=== PATIENT | female | born 1950 | race Caucasian/White ===

== ENCOUNTER 2024-07-31 09:34 | Outpatient (CLI) | payer MEDICARE, SELFPAY ==
--- OUTSIDE RECORDS SUMMARY | 2024-07-31 10:45 | XMS_ITS | Encounter Summary ---
Author Organization [facility] Address 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 [place] [address] Admit Date: 01/28/2008 JENELLE RAMSEY Sex: F Admit Prov: ANDRE ZELAYA Date: 1950 Primary Care Prov: LUIGI QUINTANILLA CMRN: [id number] Room: DIANDRA N: [id number] IMAGING SERVICES Ordering Prov: ANDRE ZELAYA Nara Accession Number: [id number] Interpretation BILATERAL FULL FIELD DIGITAL SCREENING MAMMOGRAM WITH CAD. Date: 01/28/08 History: Routine Screening. Technique: Full field digital craniocaudal and mediolateral oblique projections of both breasts were obtained. Computer aided diagnosis was performed. Comparison: 11/2006, 10/2005, 10/2004 Breast Parenchymal Composition: Scattered fibroglandular densities. Findings: No suspicious mass, suspicious microcalcifications, or architectural distortion in either breast is identified. Since the prior study, there has been no significant interval change. The computer aided diagnosis detects no significant abnormality. Overall Assessment: BI-RADS category 1: Negative. Recommendation: Annual mammography is recommended. Assessment BIRADS: 1-Negative Recommendation: Normal interval follow-up Dictated by: INOCENCIA OBREGON Electronically signed by: INOCENCIA OBREGON 01/28/2008 15:30 Transcribed: 01/28/2008 14:44 AMK Procedure Note Inocencia Obregon - 01/28/2008 [facility] [address] [place], [place] [address] Admit Date: 01/28/2008 JENELLE RAMSEY Sex: F Admit Prov: ANDRE ZELAYA Date: 1950 Primary Care Prov: LUIGI QUINTANILLA CMRN: [id number] Room: DIANDRA N: [id number] IMAGING SERVICES Ordering Prov: ANDRE ZELAYA Nara Interpretation BILATERAL FULL FIELD DIGITAL SCREENING MAMMOGRAM WITH CAD. Date: 01/28/08 History: Routine Screening. Technique: Full field digital craniocaudal and mediolateral oblique projections of both breasts were obtained. Computer aided diagnosiswas performed. Comparison: 11/2006, 10/2005, 10/2004 Breast Parenchymal Composition: Scattered fibroglandular densities. Findings: No suspicious mass, suspicious microcalcifications, or architectural distortion in either breast is identified. Since theprior study, there has been no significant interval change. The computeraided diagnosis detects no significant abnormality. Overall Assessment: BI-RADS category 1: Negative. Recommendation: Annual mammography is recommended. Assessment BIRADS: 1-Negative Recommendation: Normal interval follow-up Dictated by: INOCENCIA OBREGON Electronically signed by: INOCENCIA OBREGON 01/28/2008 15:30 Transcribed: 01/28/2008 14:44 AMK Andre Zelaya MD MAMMO ORDERABLES Final Result documented in this encounter Visit Diagnoses Diagnosis Other screening mammogram documented in this encounter Care Teams Stain Wiper Relationship Specialty Start Date End Date Jose Samaniego MD [address] [facility] [address] [place] [address] PCP - General Internal Medicine 04/18/12 documented as of this encounter
--- OUTSIDE RECORDS SUMMARY | 2024-07-31 10:45 | XMS_ITS | Encounter Summary ---
Author Organization [employer] Address [address] [place] [address] Care Team Providers Care Legal Entity Controller Name Role Phone Jose Samaniego MD Primary Care Provider Encounter Details Date Type Department Care Team (Late st Contact Info) Description 03/31/2006 Outpatient Historical [facility] Anmol Herman MD [address] [place] [address] [place] [phone] Special Screening for Malignant Neoplasms, Colon (Primary Dx) Social History Tobacco Use Types Packs/Day Years Used Date Smoking Tobacco: Never Assessed Comments Unknown Sex and Gender Information Value Date Recorded Sex Assigned at Not on file 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
--- OUTSIDE RECORDS SUMMARY | 2024-07-31 10:45 | XMS_ITS | Encounter Summary ---
Author Organization [facility] Address 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
--- OUTSIDE RECORDS SUMMARY | 2024-07-31 10:45 | XMS_ITS | Encounter Summary ---
Author Organization [facility] Address 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
--- OUTSIDE RECORDS SUMMARY | 2024-07-31 10:45 | XMS_ITS | Encounter Summary ---
Author Organization [facility] Address 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
--- OUTSIDE RECORDS SUMMARY | 2024-07-31 10:45 | XMS_ITS | Encounter Summary ---
Author Organization [facility] Address 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
--- OUTSIDE RECORDS SUMMARY | 2024-07-31 10:45 | XMS_ITS | Encounter Summary ---
Author Organization [facility] Address [address] [place] [address] Care Team Providers Care Fiberglass Roving Winder Name Role Phone Jose Samaniego MD Primary Care Provider [phone] Encounter Details Date Type Department Care Team (Latest Contact Info) Description 10/20/[address] 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
--- OUTSIDE RECORDS SUMMARY | 2024-07-31 10:45 | XMS_ITS | Encounter Summary ---
Author Organization [facility] Address 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
--- OUTSIDE RECORDS SUMMARY | 2024-07-31 10:45 | XMS_ITS | Encounter Summary ---
Author Organization [facility] Address 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
--- OUTSIDE RECORDS SUMMARY | 2024-07-31 10:45 | XMS_ITS | Clinical Summary ---
Author Organization [facility] Address [facility] [place] [address] Care Team Providers Care Central Supply Tech Name Role Phone Unavailable Primary Care Provider Unavailabl e Social History Tobacco Use Types Packs/Day Years Used Date Smoking Tobacco: Never Assessed Comments Unknown Sex and Gender Information Value Date Recorded Sex Assigned at Not on file Legal Sex Female 8:10 PM CDT Gender Identity Not on file Sexual Orientation Not on file Plan of Treatment Health Maintenance Due Date Last Done Comments Colorectal Cancer Screening Colonoscopy (10 Years) 1950 Hepatitis C 10/20/1967 DTaP, Tdap and Td Vaccines ( 1 - Tdap) 1968 Mammogram Screening 1989 Pneumococcal Vaccine: 50+ Ye ars (1 of 1 - PCV) 10/20/1999 Zoster Vaccines (1 of 2) 10/20/1999 Dexa Scan (General) 2014 COVID-19 Vaccine ( - 2023-2 5 season) 2023 RSV Immunization or 60+ Years (1 - 1-dose 75+ series) 2024 Meningococcal B Vaccine Aged Out No l onger eligible based on patient's age to complete this topic Meningococcal Vaccine Aged Out No lottie kwaku eligible based on patient's age to complete this topic RSV Immunizations Under 20 Months Aged Out No longer eligible based on patient's age to complete this topic
--- OUTSIDE RECORDS SUMMARY | 2024-07-31 10:45 | XMS_ITS | Encounter Summary ---
Author Organization [facility] Address 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
--- OUTSIDE RECORDS SUMMARY | 2024-07-31 10:45 | XMS_ITS | Encounter Summary ---
Author Organization [facility] Address [address] [place] [address] Care Team Providers Care Welder Helper Name Role Phone Jose Samaniego MD Primary Care Provider [phone] Encounter Details Date Type Department Care Team (Latest Contact Info) Description 03/23/1999 Outpatient Historical HIS [facility] Knapp, Andre Bains MD NO ADDRESS ON FILE Nonspecific abnormal findings on radiological or other examinations of the breast (Primary Dx) Social History Tobacco Use Types Packs/Day Years Used Date Smoking Tobacco: Never Assessed Comments Unknown Sex and Gender Information Value Date Recorded Sex Assigned at Not on file 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 [address] [place] [phone] PCP - General Internal Medicine 04/18/12 documented as of this encounter
--- OUTSIDE RECORDS SUMMARY | 2024-07-31 10:45 | XMS_ITS | Continuity of Care Document ---
Author Organization [facility] Address [address] [facility] [address] [place] [address] Phone Care Team Providers Care Hair Specialist Name Role Phone Angelo Rubin MD Unavailable Unavailable Allergies, Adverse Reactions, Alerts Substance Reaction Status Criticality monosodium glutamate numbness of face Active No Information Sulfa (Sulfonamide Antibiotics) Active No Information Medications Medication Instructions Dosage Effective Dates (start - stop) Status Comments polymyxin B sulfate 10,000 unit-trimethoprim 1 mg/mL eye drops instill 1 drop 3 times daily into the affected eye(s) for 7 days, separate at least 5 minutes from any other eye drop - Active please fill one bottle, 5 or 10mL pack size is sufficient Multivitamin 50 Plus tablet - Active calcium ORAL TABLET - Active CoQ-10 100 mg capsule - Active Vitamin C (unknown strength) Not Available - Active ZINC (unknown strength) Not Available - Active VITAMIN D3 (unknown strength) Not Available - Active B COMPLEX (unknown strength) Not Available - Active BIOTIN (unknown strength) Not Available - Active Move Free Joint Health 750 mg-100 mg-1.65 mg-108 mg tablet - Active atorvastatin 10 mg tablet take 1 tablet by oral route every day 10 MG - Active PreserVision AREDS-2 250 mg-200 unit-40 mg-1 mg capsule take 1 tablet by oral route 2 times every day 1 tablet - Active Procedures Procedure Date REFRACTION [facility] Oct EYE EXAM & TREATMENT GONIOSCOPY FUNDUS PHOTOGRAPHY OFFICE/OUTPATIENT VISIT, EST [facility] Oct GONIOSCOPY EYE EXAM & TREATMENT GONIOSCOPY [facility] REFRACTION EYE EXAM & TREATMENT [facility] EYE EXAM & TREATMENT Advance Directives Directive Yes / No Effective Date File Name No Information Encounters Encounter Description Practice Location Reason(s) For Visit Diagnoses Date Provider Providers Copied on Encounter [facility], [address] [place] [address], [id number], tel:[phone] [facility] No Information 5 Caryn Stephens. [address] [place] [address], [id number], [place]. tel:[phone] [facility], [address] [place] [address], [id number], tel:[phone] [facility] blurry vision (chief complaint) Age-related nuclear cataract, bilateralDruse n (degenerative) of macula, bilateralAnato mical narrow angle, bilateralPresb yopia Oct-2 4 Caryn Stephens. [address] [place] [address], [id number], [place]. tel:[phone] OFFICE/OUTPA TIENT VISIT, EST [facility], [address] [place] [address], [id number], [place] tel:[phone] [facility] Anatomically Narrow Angle (chief complaint) Age-related nuclear cataract, bilateralDruse n (degenerative) of macula, bilateralAnato mical narrow angle, bilateral Oct-3 3 Caryn Stephens. [address] [place] [address], [id number], [place]. tel:[phone] Referring Provider: Angelo Rubin, [address] [place] [address], [id number]. tel:[phone] [facility], [address] [place] [address], [id number], tel:[phone] [facility] Blurry Vision (chief complaint) Age-related nuclear cataract, bilateralDruse n (degenerative) of macula, bilateralAnato mical narrow angle, bilateral Oct-1 2 Caryn Stephens. [address] [place] [address], [id number], [place]. tel: [phone] Referring Provider: Angelo Darento, [address] [place] [address], [id number]. tel:[phone] [facility], [address] [place] [address], [id number], tel:[phone] [facility] blurry vision (chief complaint) Age-related nuclear cataract, bilateralDruse n (degenerative) of macula, bilateralAnato mical narrow angle, bilateralPresb yopia Sep- 1 Caryn Stephens. [address] [place] [address], [facility], [place]. tel: [phone] [facility], [address] [place] [address], [id number], [place] tel:[phone] [facility] blurry vision (chief complaint) Drusen (degenerative) of macula, bilateralAge-r elated nuclear cataract, bilateral Nov- 0 Caryn Stephens. [address] [place] [address], [id number], [place]. tel:[phone] [facility], [address] [place] [address], [id number], [place] tel:[phone] [facility] Age-related nuclear cataract, bilateralDruse n (degenerative) of macula, bilateral August-0 0 Caryn Angelo. [address] [place] [address], [id number], [place]. tel:[phone] [facility], [address] [place] [address], [id number], [place] tel:[phone] [facility] Age-related nuclear cataract, bilateralDruse n (degenerative) of macula, bilateral Nov- 9 Caryn [facility]. [address] [place] [address], [id number], [place]. tel:[phone] [facility], [address] [address], [place], [place], [id number], [place] tel:[phone] [facility] Age-related nuclear cataract, bilateralPresb yopiaDrusen (degenerative) of macula, bilateral 8 Caryn Stephens. [address] [place] [address], [id number], [place]. tel: [phone] Family History Family Member Type Diagnosis Age At Onset Problem (finding) Fhx of Cardiac disorder Problem (finding) Fhx of diabetes mellitu s Payers Payer name Insurance type Covered libertarian ID Denita villarreal(s) V[employer]UST[employer] CI [id number] Social History Type Description Quantity Date Captured Comments Alcohol Use Details Unknown Caffeine Use Details Unknown Tobacco Use Status No Information Smoking Status No Information Sex Female Chief Complaint And Reason For Visit No Information Reason For Referral Reason For Referral No Information Plan Of Treatment Date Type Action Status Future Order: Radiology Order Op tovue OCT/RTVue GAL ([id number]), Sent on: Sent History Of Present Illness Encounter Date Complaint History Of Prese nt Illness blurry vision The 73 year old female presents for evaluation of blurry vision in the right eye and left eye. Blurred many years. Blur is at distance & close. Only change pt notices is distance better when looks through mid section of specs. Pt also, having trouble w/ tiny print. Pt still taking Preserversion AREDS orally 1x daily for drusen. Anatomically Narrow Angle The 72 year old female presents for evaluation of Anatomically Narrow Angle in the right eye and left eye. Pt reports no issues with her vision Blurry Vision The 71 year old female presents for evaluation of Blurry Vision in the right eye and left eye, for many years. Patient reports blurry vision distance, and near- relief from glasses. Patient taking AREDS QD PO. Patient denies distortion and wavy lines. Patient denies headaches, pain, watering. blurry vision The 70 year old female presents for evaluation of blurry vision in the right eye and left eye. Several years. Gradual onset. Constant. Pt interested in refraction today, states current glasses are several years old and pretty scratched. blurry vision The 69 year old female presents for evaluation of blurry vision in the right eye and left eye. It started about 4 month(s) ago. It affects distance vision. The condition is mild. Has noticed that she has to tilt her head back to look through the bottom of her glasses to be able to see clearly at distance. Has not noticed any problems at near. Functional Status Date Functional Assessmen t No Information Instructions Date Instruction Additional Infor ninfaion Jan- Impression/Plan Related to Anato mical narrow angle, bilateral Impression/Plan Related to Druse n (degenerative) of macula, bilateral Impression/Plan Related to Age-r elated nuclear cataract, bilateral Impression/Plan Related to Presb yopia Impression/Plan Related to Anato mical narrow angle, bilateral Impression/Plan Related to Druse n (degenerative) of macula, bilateral Impression/Plan Related to Age-r elated nuclear cataract, bilateral Impression/Plan Related to Age-r elated nuclear cataract, bilateral Impression/Plan Related to Druse n (degenerative) of macula, bilateral Impression/Plan Related to Anato mical narrow angle, bilateral Impression/Plan Related to Presb yopia Impression/Plan Related to Druse n (degenerative) of macula, bilateral Impression/Plan Related to Age-r elated nuclear cataract, bilateral Impression/Plan Related to Anato mical narrow angle, bilateral Impression/Plan Related to Age-r elated nuclear cataract, bilateral Impression/Plan Related to Druse n (degenerative) of macula, bilateral Impression/Plan Related to Druse n (degenerative) of macula, bilateral Impression/Plan Related to Age-r elated nuclear cataract, bilateral Assessments Type Assessment Date No Information Patient Care Teams Name Effective Dates (start - stop) Status Members No Information
--- OUTSIDE RECORDS SUMMARY | 2024-07-31 10:45 | XMS_ITS | Data Portability ---
Author Organization [place] [facility], [facility] D Mike [facility] Address [address] [place] [address] Assessment No assessment recorded. Plan of Treatment Reminders Order Date Submit Date Provider Last Modified By Organization Details Last Modified Time Details Appointments None record ed. Lab None record ed. Referral None record ed. Procedures None record ed. Surgeries None record ed. Imaging None record ed. Medication Orders None record ed. Patient TargetsNo targets recorded. Patient Instructions Encounter Date Encounter Id Patient Instructions Last Modified By Organization Details Last Modified Time 05/13/2015 [id number] plantar fasciiti s: care instructions [email or web address] Not available 05/13/2015 15:32:44 plantar fasciiti s: exercises [email or web address] Not available 05/13/2015 15:32:44 Overall the taniya ent is very pleased with her improvement thus far. Today I have recommended that the patient continue with a combination of stretching exercises, arch supports, PSC multiligamentous foot strapping, new more supportive Dansko shoes, night splint, functional orthoses, and heel lifts. Patient was advised as to the possible benefits of proper shoes. Patient instructed on heel cord stretches. Patient instructed on plantar fascial stretching. If her pain returns she may consider 2nd injection, amniotic membrane injection, FAST microfasciotomy and, new custom foot orthoses. The etiology and treatment options for degenerative arthritis and hallux rigidus of the 1st mtpj were discussed with the patient today. Treatments include NSAIDs, pain relievers, corticosteroid injections, topical NSAIDs, footwear modifications, custom orthoses, Wrymark carbon fiber insoles, OTC arch supports/padding, and surgery if conservative treatment fails. Today, I have recommended no treatment since the joint is currently asymptomatic. If the patient's pain becomes more chronic and constant, and intensity of discomfort becomes intolerable, then the patient should consider surgery which would consist of an aggressive cheilectomy with soft tissue release of the 1st mtpj. I have spent a total of 30 minutes with the patient in which over 1/2 (16 minutes) were spent discussing/ coordinating care and answering questions regarding the patient's foot concerns/pain [email or web address] Not available 05/13/2015 15:32:44 07/28/2015 [id number] plantar fasciiti s: care instructions [email or web address] Not available 07/28/2015 15:45:04 plantar fasciiti s: exercises [email or web address] Not available 07/28/2015 15:45:04 Overall the taniya ent is very pleased with her improvement thus far. Today I have recommended that the patient continue with a combination of stretching exercises, arch supports, PSC multiligamentous foot strapping, new more supportive Dansko shoes, night splint, functional orthoses, and heel lifts. Patient was advised as to the possible benefits of proper shoes. Patient instructed on heel cord stretches. Patient instructed on plantar fascial stretching. I have recommended a 2nd set of injections today for both heels. If her pain returns she may consider [facility] physical therapy, amniotic membrane injection, FAST microfasciotomy and, new custom foot orthoses. The etiology and treatment options for degenerative arthritis and hallux rigidus of the 1st mtpj were discussed with the patient today. Treatments include NSAIDs, pain relievers, corticosteroid injections, topical NSAIDs, footwear modifications, custom orthoses, Wrymark carbon fiber insoles, OTC arch supports/padding, and surgery if conservative treatment fails. Today, I have recommended no treatment since the joint is currently asymptomatic. If the patient's pain becomes more chronic and constant, and intensity of discomfort becomes intolerable, then the patient should consider surgery which would consist of an aggressive cheilectomy with soft tissue release of the 1st mtpj. I have spent a total of 30 minutes with the patient in which over 1/2 (16 minutes) were spent discussing/ coordinating care and answering questions regarding the patient's foot concerns/pain [email or web address] Not available 07/28/2015 15:45:04 08/28/2015 [id number] plantar fasciiti s: care instructions Not available 09/02/2015 16:51:11 plantar fasciiti s: exercises Not available 09/02/2015 16:51:12 The patient's pa in has increased since her last office visit. Today I have recommended that the patient continue with a combination of stretching exercises, arch supports, PSC multiligamentous foot strapping, new more supportive Dansko shoes, night splint, functional orthoses, and heel lifts. Patient was advised as to the possible benefits of proper shoes. Patient instructed on heel cord stretches. Patient instructed on plantar fascial stretching. I have recommended a course of physical therapy to include [facility] physical therapy. She has declined the amniotic membrane injection, but is interested in pursuing FAST/[place] microfasciotomy. The procedures were discussed in detail today including risks, benefits, complications and expected post-operative course. The etiology and treatment options for degenerative arthritis and hallux rigidus of the 1st mtpj were discussed with the patient today. Treatments include NSAIDs, pain relievers, corticosteroid injections, topical NSAIDs, footwear modifications, custom orthoses, Wrymark carbon fiber insoles, OTC arch supports/padding, and surgery if conservative treatment fails. Today, I have recommended no treatment since the joint is currently asymptomatic. If the patient's pain becomes more chronic and constant, and intensity of discomfort becomes intolerable, then the patient should consider surgery which would consist of an aggressive cheilectomy with soft tissue release of the 1st mtpj. I have spent a total of 30 minutes with the patient in which over 1/2 (16 minutes) were spent discussing/ coordinating care and answering questions regarding the patient's foot concerns/pain [email or web address] Not available 08/31/2015 12:46:12 09/16/2015 [id number] plantar fasciiti s: care instructions [email or web address] Not available 09/17/2015 15:19:24 plantar fasciiti s: exercises [email or web address] Not available 09/17/2015 15:19:24 foot sprain: car e instructions [email or web address] Not available 09/17/2015 15:19:24 10/08/2015 [id number] plantar fasciiti s: care instructions [email or web address] Not available 10/08/2015 15:26:03 plantar fasciiti s: exercises [email or web address] Not available 10/08/2015 15:26:03 The patient's pa in has decreased signfiicantly since her last office visit. She may have sustained a partial plantar fascia tear left. Today I have recommended that the patient continue with a combination of stretching exercises, arch supports, PSC multiligamentous foot strapping, new more supportive Dansko shoes, night splint, functional orthoses, and heel lifts. She may discontinue immobilization since her acute pain has resolved. Patient was advised as to the possible benefits of proper shoes. Patient instructed on heel cord stretches. Patient instructed on plantar fascial stretching. I have recommended she continue a course of physical therapy for 3 additional weeks once she returns from her upcoming vacation trip. She has declined the amniotic membrane injection, but may be interested in pursuing FAST/[place] microfasciotomy if her plantar fascia pain returns. The procedures were discussed in detail today including risks, benefits, complications and expected post-operative course. The etiology and treatment options for degenerative arthritis and hallux rigidus of the 1st mtpj were discussed with the patient today. Treatments include NSAIDs, pain relievers, corticosteroid injections, topical NSAIDs, footwear modifications, custom orthoses, Wrymark carbon fiber insoles, OT arch supports/padding, and surgery if conservative treatment fails. Today, I have recommended no treatment since the joint is currently asymptomatic. If the patient's pain becomes more chronic and constant, and intensity of discomfort becomes intolerable, then the patient should consider surgery which would consist of an aggressive cheilectomy with soft tissue release of the 1st mtpj. I have spent a total of 30 minutes with the patient in which over 1/2 (16 minutes) were spent discussing/ coordinating care and answering questions regarding the patient's foot concerns/pain [email or web address] Not available 10/08/2015 15:26:03 Reason for Referral None Reported. Results Created Date Observation Date Name Description Value Unit Range Abnormal Flag Note LastModifiedBy Organization Detail LastModifiedTime Result Notes None recorded. Problems Name Problem SNOMED Code Status Onset Date Resolution Date Notes Provider Name and Address Organization Details Recorded Time Plantar fasciitis 448025633 Adonis Ferreira DPM [address] [place] [address], [address], [facility] 15:26:03 Calcaneal spur 59727373 Active Edy Ferreira DPM [address] [place], [address], [facility] 6 15:26:03 Localized, primary osteoarthri tis of the ankle and/or foot 028563006 [facility] 14:51:22 Acquired hallux rigidus 4034080 Active Edy Ferreira DPM [address] [place], [address], [facility] 6 15:26:03 Equinus contracture of the ankle 486460564 Active Edy Ferreira DPM [address] [place], [address], [facility] 6 15:26:03 Foot pain 16474430 Active Edy Ferreira DPM [address] [place], [address] 6 15:26:03 Sprain of foot 48612783 Active Edy Ferreira DPM [address] [place], [address] [place] [address] 6 15:26:03 Problem Notes None recorded. Procedures Surgical History Date Name Laterality Status Provider Name and Address Organization Details Recorded Time Favian L4361 Pneumatic Walking Boot Dispensing completed [facility] 09/16/2015 14:39:28 Favian 67124 Xray 2v Heel completed [facility] 09/17/2015 12:34:56 Favian 99532 Preop completed Edy Ferreira DPM [address] [place], [address] 08/31/2015 12:43:45 016 60072 Tendon Injection completed Edy Ferreira, [place] [address] [place], [address], [facility] 07/28/2015 15:44:09 016 77392 Heel Injection completed Edy Ferreira, [place] [address] [place], [address], [facility] 04/22/2015 15:47:21 016 L4397- Posterior Night Splint completed Edy Ferreira, [place] [address] [place], [address] 04/22/2015 15:47:21 016 L1906- Multiligamentous ankle brace completed Edy Ferreira, [place] [address] [place], [address] 04/22/2015 15:47:21 998 Foot Surgery completed Val Calix [facility] 07/28/2015 15:26:33 Imaging Results None recorded. Procedure Notes None recorded. Medical Equipment None Reported. Allergies No known drug allergies Medications Name Sig Start Date Stop Date Status Note LastModified by Organization Details LastModified Time celecoxib 200 mg capsule TAKE 1 CAPSULE 2 TIMES A DAY active Not Available Not Available Not Available cyclobenzapr ine 10 mg tablet TAKE 1 TABLET BY MOUTH 3 TIMES A DAY NEEDED active Not Available Not Available No t Available atorvastatin 20 mg tablet TAKE 1/2 OF A TABLET BY MOUTH EVERY DAY active Not Available Not Available No t Available atorvastatin 10 mg tablet active Not Available Not Available Not Available tramadol 50 mg tablet TAKE 1 TABLET BY MOUTH EVERY 6-8 HOURS NEEDED active Not Available Not Available No t Available fluticasone propionate 50 mcg/actuatio n nasal spray,suspen debbie active Not Available Not Available Not Available Fluzone High-Dose (PF) 180 mcg/0.5 mL intramuscula r syringe TO BE ADMINISTERE D BY PHARMACIST FOR IMMUNIZATIO N active Not Available Not Available No t Available Vitals Date Recorded Body height Body mass index (BMI) Body weight Provider Name and Address Organization Details Last Updated DateTime 09/16/2015 175.26 cm 29.5 kg/m2 71163.474 g Shayla Peguero [facility] 09/16/2015 11:56:08 Social History Question Answer Notes LastModified by [employer] Details LastModified Time Tobacco Smoking Status Never Smoker Helena Rubi manuel, [facility] 04/22/2015 14:50:57 What Is Your Level Of Alcohol Consumption? Occasional Information not available 04/22/2015 Size Of Shoes Information not available 04/22/2015 Sex: Unknown Functional Status Question Answer Note LastModified by [employer] Details LastModified Time What is your exercise level? Occasional Information not available 04/22/2015 Mental Status None recorded. Family History Relationship Description Onset Age of this Age Resolved Age Notes LastModified by Organization Details LastModified Time Mother Heart disease [email or web address] Not available 2015 14:51:23 Father Heart disease [email or web address] Not available 2015 14:51:23 Sister Malignant neoplastic disease [email or web address] Not available 2015 14:51:23 Sister Diabetes mellitus [email or web address] Not available 2015 14:51:23 Brother Malignant neoplastic disease [email or web address] Not available 2015 14:51:23 Medical History Condition Response Tuberculosis or TB N Heart Problems N Ulcers on Legs or Feet N Coronary Artery Disease N HIV or AIDS N Seizure Disorder N Gout N High Blood Pressure N Clot in Lung or Pulmonary Embolism N Menopause N Lung Condition N Phlebitis or Venous Blood Clot N Migraines N Depression N Pacemaker N Anemia N Back Pain Y Neurologic Disease N Sciatica N Heart Attack (PR) N Diabetes N Urinary Tract Infections N Anxiety Disorder N Bleeding Disorder N Arthritis Y Abuse of Alcohol or Drugs N Back injury Y Ear Problems N Cancer N Dementia N Eye Problems N Stroke N Stomach Problems N Peripheral Vascular Disease N Sinus Conditions N Broken Bone Y Thyroid Disorder N High Cholesterol Y Hepatitis N Liver Disease N Heart Disease N Rheumatoid Arthritis N Rash N Osteoporosis N Kidney Disease N Gynecological HistoryNo gynecological history recorded. Obstetrics History GPAL:G 0 P 0 0 0 0 Past Encounters Encounter ID Performer Location Encounter Start Date Encounter Closed Date Diagnosis/Indication Diagnosis SNOMED-CT Code Diagnosis ICD10 Code Diagnosis Note [id number] Chicho Ferreira DPM [facility] [address] [place] [address] 04/22/2015 14:37:20 04/22/2015 15:50:51 Plantar fasciitis 939660186 M72.2 Calcaneal spur 39322451 M77.32 M77.31 Localized, primary osteoarthritis of the ankle and/or foot 921694679 M19.072 Acquired h allux rigidus 2828402 M20.22 Equinus co ntracture of the ankle 199808103 M24.572 M24.571 Foot pain 95093767 M79.6 71 M79.672 [id number] Val Calix [facility] [address] [place] [address] 05/13/2015 14:46:05 05/13/2015 15:56:24 Plantar fasciitis 737051191 M72.2 Calcaneal spur 26112701 M77.32 M77.31 Localized, primary osteoarthritis of the ankle and/or foot 097694735 M19.072 Acquired h allux rigidus 2477609 M20.22 Equinus co ntracture of the ankle 220479358 M24.572 M24.571 Foot pain 16310595 M79.6 71 M79.672 [id number] Chicho Ferreira DPM [facility] [address] [place] [address] 07/28/2015 15:20:11 07/28/2015 15:41:57 Plantar fasciitis 907025676 M72.2 Calcaneal spur 49902063 M77.32 M77.31 Localized, primary osteoarthritis of the ankle and/or foot 877301971 M19.072 Acquired h allux rigidus 9917088 M20.22 Equinus co ntracture of the ankle 459112237 M24.572 M24.571 Foot pain 04616891 M79.6 71 M79.672 [id number] Chicho Ferreira [facility] [address] [place] [address] 08/28/2015 14:24:55 08/28/2015 15:12:05 Plantar fasciitis 721989773 M72.2 Calcaneal spur 17800691 M77.32 M77.31 Localized, primary osteoarthritis of the ankle and/or foot 496217514 M19.072 Acquired h allux rigidus 5586894 M20.22 Equinus co ntracture of the ankle 482584939 M24.572 M24.571 Foot pain 67452770 M79.6 71 M79.672 [id number] Henna [place] [address] [place] [address] 09/16/2015 11:47:58 09/16/2015 12:41:23 Foot pain 90033921 M79.672 Sprain of foot 93140765 S93.692A Plantar fascial sprain/str ain, possible partial tear, Left -Pt evaluated and treated -Radiograp hs of the left heel were obtained, interprete d, and discussed with patient to r/o fracture. No osseous findings were present. -Symptoms are consistent severe strain/spr ain of plantar fascial insertion. Discussed that tendons and ligaments take 3-4 wks to heal. Patient unable to bear weight on left foot. Dispensed CAM walker for LLE with instructio n for 3 pt touch/PWB with assistance of crutches for 1-2 weeks, then can gradually transition into FWB without crutches in CAM walker for 2 additional weeks. Discussed putting custom orthotics or using PSC strap inside CAM for added support to arch -Instructe d to ice heel 20 min on/20 min off -Can continue ultrasound at PT, instructed to back off of stretching for 1-2 weeks as this will caused increased strain at plantar fascial insertion -RTC at already scheduled appt with Dr Mitchell on 10/08/15 for f/u; sooner if needed Plantar fasciitis 673300 003 M72.2 [id number] Chicho Ferreira DPM [facility] [address] [place] [address] 10/08/2015 14:27:00 10/08/2015 15:00:22 Sprain of foot 38827567 S93.692D Plantar fasciitis 498347 003 M72.2 Calcaneal spur 88365656 M77.32 M77.31 Acquired h allux rigidus 7565284 M20.22 Equinus co ntracture of the ankle 269747458 M24.572 M24.571 Foot pain 67357276 M79.6 71 M79.672 Health Concerns Section Related Observation LastModified by Organization Detai ls LastModified Time None Recorded Concern Status LastModified by Organization Details LastModified Time None Recorded Advance Directives Directive None Recorded Payers Encounter Date Sequence Insurance Name Policy Number Policy Wahl Covered Member ID Wahl Member ID Guarantor Name 05/13/2015 1 [facility] - MEDIC[employer] SOL[employer]IONS - MEDICARE COMPLETE CHOICE (MEDICARE REPLACEMENT PPO) [id number] Alden Stutts [id number] Alden Stutts 07/28/2015 1 [facility] [employer] - MEDICARE SOLUTIONS - MEDICARE COMPLETE CHOICE (MEDICARE REPLACEMENT PPO) [id number] Alden Stutts [id number] Alden Stutts 08/28/2015 1 [facility] - MEDICARE SOLUTIONS - MEDICARE COMPLETE CHOICE (MEDICARE REPLACEMENT PPO) [id number] Alden Stutts [id number] Alden Stutts 09/16/2015 1 [facility] - [facility] - MEDICARE SOLUTIONS - MEDICARE COMPLETE CHOICE (MEDICARE REPLACEMENT PPO) [id number] Alden Stutts [id number] Alden Stutts 10/08/2015 1 [facility] - [facility] - MEDICARE SOLUTIONS - MEDICARE COMPLETE CHOICE (MEDICARE REPLACEMENT PPO) [id number] Alden Stutts [id number] Alden Stkiyats Notes Date Note Type Note Provider Name and Address Organization Details Recorded Time 05/13/2015 text/html Heel Pain--Repor sal bypatient.Location: right bottom of the heel; left bottom of the heel Nature of Pain:dull; pain level 0-1/10 Duration:3 months Onset:gradually in the mornings when getting out of bed Course:Better; improved 95% Aggravating Factors:after doing activity, walking then getting up after a period of rest ; pain is worst when getting up out of bed in the morning; standing up after a period of rest Allevating Factors:stretching exercises; ice; rest; OTC Arch supports; custom molded orthotics; night splint Prior Imaging:x ray Previous TreatmentBy Dr. Anna; cortisone shots (at last office visit provided excellent relief); Orthotripsy in 2000Notes:SHE PRESENTS TODAY WEARING NEW DANSKO CLOGS. SHE WAS REFERRED BY DR. MEZA FOR ADDITIONAL EVALUATION AND TREATMENT. SHE HAD A SIMILAR PROBLEM IN [address]RE[address] DR[address] ANNA WITH CUSTOM ORTHOSES AND EVENTUALLY ECSWT. SHE DID NOT BRING HER OLD ORTHOTICS WITH HER TODAY. SHE HAS A HISTORY OF A LEFT 1ST MTPJ SURGERY WITH POSSIBLE CHEILECTOMY- THE JOINT IS CURRENTLY ASYMPTOMATIC. SHE ALSO RELATES A RECENT HISTORY OF INCREASED LOWER BACK PAIN AND HAS BEEN TAKING CELEBREX AND TRAMADOL BUT WOULD LIKE TO AVOID TAKING TRAMADOL IF POSSIBLE. SHE DOES NOT HAVE ANY RADIATING PAIN IN EITHER LEG. OVERALL SHE IS VERY PLEASED WITH HER IMPROVEMENT SINCE HER LAST OFFICE VISIT. SHE BROUGHT HER OLD ORTHOSES FROM 2002 TO THE OFFICE FOR INSPECTION. Edy Ferreira, [address], [address], [place] [facility] 05/13/2015 15:32:51 07/28/2015 text/html Heel Pain--Repor sal bypatient.Location: right bottom of the heel; left bottom of the heel; left worse than right Nature of Pain:dull; pain level 0-1/10 Duration:5 months Onset:gradually in the mornings when getting out of bed Course:Worse Aggravating Factors:after doing activity, walking then getting up after a period of rest ; pain is worst when getting up out of bed in the morning; standing up after a period of rest Allevating Factors:stretching exercises; ice; rest; OTC Arch supports; custom molded orthotics; night splint Prior Imaging:x ray Previous TreatmentBy Dr. Anna; cortisone shots (at initial office visit provided excellent relief); Orthotripsy in 2000Notes:SHE PRESENTS TODAY WEARING NEW DANSKO CLOGS. SHE WAS REFERRED BY DR. MEZA FOR ADDITIONAL EVALUATION AND TREATMENT. SHE HAD A SIMILAR PROBLEM IN [address] DR[address] ANNA WITH CUSTOM ORTHOSES AND EVENTUALLY ECSWT. SHE DID NOT BRING HER OLD ORTHOTICS WITH HER TODAY. SHE HAS A HISTORY OF A LEFT 1ST MTPJ SURGERY WITH POSSIBLE CHEILECTOMY- THE JOINT IS CURRENTLY ASYMPTOMATIC. SHE ALSO RELATES A RECENT HISTORY OF INCREASED LOWER BACK PAIN AND HAS BEEN TAKING CELEBREX AND TRAMADOL BUT WOULD LIKE TO AVOID TAKING TRAMADOL IF POSSIBLE. SHE DOES NOT HAVE ANY RADIATING PAIN IN EITHER LEG. HER PAIN GRADUALLY INCREASED SINCE HER LAST OFFICE VISIT. HER OLD ORTHOSES FROM 2002 ARE STILL IN GOOD CONDITION. Edy Ferreira, [address] [place], [address], [facility] 07/28/2015 15:45:11 08/28/2015 text/html Heel Pain--Repor sal bypatient.Location: right bottom of the heel; left bottom of the heel; left worse than right Nature of Pain:dull; pain level 0-1/10 Duration:6 months Onset:gradually in the mornings when getting out of bed Course:Worse Aggravating Factors:after doing activity, walking then getting up after a period of rest ; pain is worst when getting up out of bed in the morning; standing up after a period of rest Allevating Factors:stretching exercises; ice; rest; OTC Arch supports; custom molded orthotics; night splint Prior Imaging:x ray Previous TreatmentBy Dr. Anna; cortisone shots (at initial office visit provided excellent relief); Orthotripsy in 2000Notes:SHE PRESENTS TODAY WEARING NEW DANSKO CLOGS. SHE WAS REFERRED BY DR. MEZA FOR ADDITIONAL EVALUATION AND TREATMENT. SHE HAD A SIMILAR PROBLEM IN 2000 [address]RE[address] DR[address] ANNA WITH CUSTOM ORTHOSES AND EVENTUALLY ECSWT. SHE DID NOT BRING HER OLD ORTHOTICS WITH HER TODAY. SHE HAS A HISTORY OF A LEFT 1ST MTPJ SURGERY WITH POSSIBLE CHEILECTOMY- THE JOINT IS CURRENTLY ASYMPTOMATIC. SHE ALSO RELATES A RECENT HISTORY OF INCREASED LOWER BACK PAIN AND HAS BEEN TAKING CELEBREX AND TRAMADOL BUT WOULD LIKE TO AVOID TAKING TRAMADOL IF POSSIBLE. SHE DOES NOT HAVE ANY RADIATING PAIN IN EITHER LEG. HER PAIN GRADUALLY INCREASED SINCE HER LAST OFFICE VISIT. HER OLD ORTHOSES FROM 2002 ARE STILL IN GOOD CONDITION. Edy Ferreira DPM [address] [place], [address], [facility] 08/31/2015 12:46:19 09/16/2015 text/html Heel Pain--Repor sal bypatient.Location: left back of the heel; left bottom of the heel Nature of Pain:sharp and stabbing Duration:date of onset: (09/15/15) Onset:after an injury of stepping on a chair-felt snap Course:Worse Aggravating Factors:wiggling the ankle; walking; weightbearing Allevating Factors:rest Prior Imaging:noneNotes:[age]yo female rtc with complaint of return of pain to the bottom of the left heel, radiating to back of heel. She relates that she was stepping up on a stool/chair to reach something off the shelf, pushed off her back left foot, and felt a snap/pop in her left heel. She notes that she has a friend who is a graduation coach who came over and helped her wrap the foot in an ROBERTA bandage, and also talked to physical therapist over the phone, said it didn't sound like an achilles injury. Patient states that her heel pain was doing much better with recommended therapies of better shoes, no barefoot walking, and series of steroid injections. The pain she is experiencing today is located to the bottom of the heel, rated 20/10 when it happened, now is improved with self therapy of ice and taking Celebrex. She also has put herself on crutches because she is unable to bear weight on the foot. She denies further pedal complaints. JACINTO Anderson - Foot [facility] 09/17/2015 14:02:53 10/08/2015 text/html Heel Pain--Repor sal bypatient.Location: left back of the heel; left bottom of the heel Nature of Pain:dull; pain level 0-1/10 Duration:date of onset: (09/15/15) Onset:after an injury of stepping on a chair-felt snap Course:Better; improved 95% Aggravating Factors:barefoot Allevating Factors:ice; rest; pneumatic walking boot helped dispensed at last office visit Prior Imaging:x rayNotes:Patient states that her heel pain is doing much better with recommended therapies of better shoes, no barefoot walking, and she is attending physical therapy for the past 3 weeks. Overall she is very pleased with her improvement since her last office visit. Edy Ferreira, [address] [place], [address], [facility] 10/08/2015 15:26:11 OBGyn Episode No OBEpisode recorded.
--- OUTSIDE RECORDS SUMMARY | 2024-07-31 10:46 | XMS_ITS | Clinical Summary ---
Author Organization [facility] [employer] Address [address] [place] [address] Care Team Providers Care Buyer Grain Name Role Phone Unavailable Primary Care Provider Unavailabl e Source Comments [facility] [employer],non-owned Affiliates and Associated Physician Practices is amultiple site organization consisting of ambulatory clinics and hospital sitesin [place], [place], [place] and [place]. This disclosure is being madepursuant to the Care Everywhere program and may not contain all information available regarding this patient. Last updated 17.[facility] [employer] Social History Tobacco Use Types Packs/Day Years Used Date Smoking Tobacco: Never Assessed Comments Unknown Sex and Gender Information Value Date Recorded Sex Assigned at Not on file Legal Sex Female 6:04 AM BROOM BUNDLER Gender Identity Not on file Sexual Orientation Not on file Plan of Treatment Health Maintenance Due Date Last Done Comments BONE DENSITY TESTING 1950 COLOGUARD (AGES 45-75) - COL ON CA SCREENING 1949 COLON MONITORING 1949 COLONOSCOPY - COLON CA SCREENING 1949 CT COLONOGRAPHY - COLON CA SCREENING 1950 Colorectal Cancer Screening 1949 FIT - COLON CA SCREENING 1949 FLEX SIG - COLON CA SCREENING 1949 LIPID TESTING 1950 MAMMOGRAM 1949 HEPATITIS C SCREENING 10/15/1967 DTAP/TDAP/TD VACCINES (1 - Tdap) 1968 PNEUMOCOCCAL VACCINE 50+ (1 of 1 - PCV) 10/20/1999 ZOSTER VACCINE (1 of 2) 10/20/1999 COVID-19 VACCINE ( - 2023-2 5 season) 2023 DEPRESSION SCREENING 04/10/2024 Respiratory Syncytial Virus (RSV) Vaccine Pt: or over 60 yrs (1 - 1-dose 75+ series) 2024 INFLUENZA VACCINE (Season Ended) 2024 HEPATITIS B VACCINE Aged Out No longe r eligible based on patient's age to complete this topic HIB VACCINE Aged Out No longer eligi ble based on patient's age to complete this topic HPV VACCINE Aged Out No longer eligi ble based on patient's age to complete this topic MENINGOCOCCAL (Group B) VACC INE SHARED DECISION-MAKING Aged Out No longer eligibl e based on patient's age to complete this topic MENINGOCOCCAL GROUPS A/C/Y/W VACCINE Aged Out No longer eligible b ased on patient's age to complete this topic
--- OUTSIDE RECORDS SUMMARY | 2024-07-31 10:46 | XMS_ITS | Clinical Summary ---
Author Organization [facility] Address [address] [place] [address] Phone Care Team Providers Care Compositor Apprentice Name Role Phone Jose Samaniego MD Primary Care Provider [phone] Allergies Active Allergy Reactions Criticality Noted Date Comments Sulfa (Sulfonamide Antibiotics) Swelling Low 02/08 Medications atorvastatin (LIPITOR) 10 mg tablet Take 10 mg by mouth daily. Active multivitamin (DAILY-ANDRES) tablet Take 1 Tablet by mouth daily. Active calcium carbonate + vitamin D (CALTRATE+D) 600 mg(1,500mg) -400 unit Tablet Take by mouth. Active coenzyme Q10 Capsule Take 10 mg by mouth daily. Active vit A/C/E ac/ZnOx/cupric oxide (EYE VITAMIN AND MINERALS ORAL) Take by mouth. Active HAIR, SKIN AND NAILS, BIOTIN, ORAL Take by mouth. Active ascorbic acid, vitamin C, (VITAMIN C) 500 mg tablet Take 500 mg by mouth daily. Active ZINC SULFATE ORAL Take by mouth. Active Active Problems No known active problems Encounters Date Type Department Care Team Description 06/26/2024 External Device Data [facility] ABSTRACTION Provider, Abstract 06/15/2024 External Device Data [facility] ABSTRACTION Provider, Abstract 06/15/2024 External Device Data [facility] ABSTRACTION Provider, Abstract 06/12/2024 External Device Data [facility] ABSTRACTION Provider, Abstract 05/29/2024 External Device Data [facility] ABSTRACTION Provider, Abstract 05/02/2024 External Device Data [facility] ABSTRACTION Provider, Abstract from Last 3 Months Family History Medical History Relation Name Comments Breast Cancer Sister 1 age 72 Cancer Sister 1 Gastric Breast Cancer Sister 2 Ovarian Cancer Neg Hx Relation Name Status Comments Sister 1 Alive Sister 2 Alive Social History Tobacco Use Types Packs/Day Years Used Date Smoking Tobacco: Never Smokeless Tobacco: Never Alcohol Use Standard Drinks/Week Comments Yes 0 (1 standard drink = 0.6 oz pur e alcohol) socially Comments No Sex and Gender Information Value Date Recorded Sex Assigned at Not on file Legal Sex Female 3:37 AM EDGE BLACKER Gender Identity Not on file Sexual Orientation Not on file Occupation Industry Job Start Date Job End Date Not on file Not on file Not on file Not on file Last Filed Vital Signs Vital Sign Reading Time Taken Comments Blood Pressure 122/86 12/13/2022 1:11 PM CDT Pulse - - Temperature - - Respiratory Rate - - Oxygen Saturation - - Inhaled Oxygen Concentration - - Weight 106.7 kg (235 lb 3.2 oz) 12/13/2022 1:11 PM CDT Height 173.4 cm (5' 8.25 ) 12/13/2022 1:11 PM CD T Body Mass Index 35.5 12/13/2022 1:11 PM CDT Plan of Treatment Health Maintenance Due Date Last Done Comments DTAP/TDAP/TD VACCINES (1 - Tdap) 1968 COLORECTAL SCREENING 1994 Colorectal Cancer Screening 1994 FIT-DNA Q 3 years 1994 FIT/FOBT Q 1 year 1994 Flex Sig/CT Colonography Q 5 years 1994 PNEUMOCOCCAL VACCINE 50+ YEA RS (1 of 1 - PCV) 10/20/1999 ZOSTER VACCINE (1 of 2) 10/20/1999 INFLUENZA VACCINE (#1) 2023 01/06/2022 RSV VACCINE (60+ or ) (1 - 1-dose 75+ series) 2024 BREAST CANCER SCREENING 03/20/2025 03/20/20 24, 02/02/2023, 01/05/2022, Additional history exists OSTEOPOROSIS SCREENING 12/14/2027 12/13/2022, 2019 Procedures Procedure Name Priority Date/Time Associated Diagnosis Comments MAMMO 3D TAE SCREEN BILAT W OR WO CAD Routine 03/20/2024 3:48 PM EDGE BLACKER Breast cancer screening by mammogram XR DEXA BONE DENSITY AXIAL 1 OR MORE SITES Routine 12/13/2022 1:08 PM CDT Other specified disorders of bone density and structure, other site from Last 3 Months or Most Recently Relevant to Health Maintenance Results * MAMMO 3D TAE SCREEN BILAT W OR WO CAD (03/20/2024 3:48 PM EDGE BLACKER) Anatomical Region Laterality Modality Breast Bilateral Mammography 03/20/2024 3:48 PM EDGE BLACKER Impressions 03/20/2024 7:33 PM EDGE BLACKER IMPRESSION: Negative bilateral screening mammogram. Recommend routine followup. OVERALL FINAL ASSESSMENT: BI-RADS CATEGORY 1 - Negative. DICTATION LOCATION: [facility] 03/20/2024 7:33 PM EDGE BLACKER BILATERAL SCREENING DIGITAL MAMMOGRAMS WITH COMPUTER ASSISTED DIAGNOSIS WITH TOMOGRAPHY DATE: 03/20/2024 3:48 PM HISTORY: Annual screening. COMPARISON: 02/02/2023 and 01/05/2022. TECHNIQUE: A bilateral screening mammogram was performed. Low-dose full-field digital breast tomosynthesis examination was performed with 2D and 3D acquisitions. Examination is read in conjunction with computer aided detection. BREAST COMPOSITION: Heterogeneously dense, which limits the sensitivity of mammography. FINDINGS: No new masses, suspicious calcifications, or areas of asymmetry or distortion are identified. The images were reviewed using the CAD system. Procedure Note Corine Villela MD - 03/20/2024 BILATERAL SCREENING DIGITAL MAMMOGRAMS WITH COMPUTER ASSISTED DIAGNOSIS WITH TOMOGRAPHY DATE: 03/20/2024 3:48 PM HISTORY: Annual screening. COMPARISON: 02/02/2023 and 01/05/2022. TECHNIQUE: A bilateral screening mammogram was performed. Low-dose full-field digital breast tomosynthesis examination was performed with 2D and 3D acquisitions. Examination is read in conjunction with computer aided detection. BREAST COMPOSITION: Heterogeneously dense, which limits the sensitivity of mammography. FINDINGS: No new masses, suspicious calcifications, or areas of asymmetry or distortion are identified. The images were reviewed using the CAD system. IMPRESSION: Negative bilateral screening mammogram. Recommend routine followup. OVERALL FINAL ASSESSMENT: BI-RADS CATEGORY 1 - Negative. DICTATION LOCATION: [facility] Jose Samaniego MD MAMMO ORDERABLES Final Result * XR DEXA BONE DENSITY AXIAL 1 OR MORE SITES (12/13/2022 1:08 PM CDT) Anatomical Region Laterality Modality Computed Radiogr aphy Impressions 12/13/2022 4:28 PM CDT : Worst T score is -1.3. FRAX is negative and there is no history of osteoporotic fracture. Repeat in 2 years. us Damian Haley MD DIAGNOSTIC IMAGING ORD ERABLES Final Result from Last 3 Months or Most Recently Relevant to Health Maintenance Insurance [employer] O [facility] Care Teams Compositor Apprentice Relationship Specialty Start Date End Date Jose Samaniego MD [address] [place] [address] [address] [place] [address] PCP - General Internal Medicine 04/18/12
== END 2024-07-31 09:35 | disposition home or self-care (01) ==
LOC: ANHAUDASC 09:40
DX: H91.90 Unspecified hearing loss, unspecified ear (principal)
CPT/HCPCS: 92567